=== PATIENT | female | born 1985 | race Caucasian/White ===

== ENCOUNTER 2020-06-20 14:54 | Emergency (ER) | payer OTHER ==
[~2020-06-20] VITALS: Ht 167.6 cm; Wt 65.8 kg
--- NOTE | 2020-06-20 15:36 | PHYS DOC ---
Past History Past Medical History: Asthma, Hypothyroid, UTI, Other Additional Past Medical Histor: Nerves Past Surgical History: No Surgical History Alcohol Use: Occasionally Adult General Chief Complaint Chief Complaint: SORE THROAT HPI HPI Patient is a 34-year-old female presents emergency department today complaining of URI symptoms for the past 3 weeks, patient states that she is a member in [employer], [facility] and started on amoxicillin for her sore throat, also started on Pepcid for epigastric pains. Patient states she takes 20 mg of Pepcid twice a day every day for the past 9 days, and is taking her amoxicillin 3 times a day for the past 9 days. Patient states she is concerned because her lymph nodes in her throat are still swollen, she wishes to have an x-ray of her neck to make sure that nothing is wrong, patient states that she is concerned that the Pepcid has not relieved any of her upper abdominal and epigastric pain. Patient states that she continues to be short of breath when she coughs, patient states that her cough continues to be nonproductive, patient states that she does not have chest pain however she does have chest pressure when she coughs and has upper back pain when she coughs. Patient states she does have a history of asthma and used her MDI inhaler last night, however patient states that she does not feel like she is having an asthma attack today and has not used her MDI inhaler today. Patient states that she was also tested for the Covid virus on 06/04/2020 which was negative. Patient states her normal period was a week ago, patient denies nausea, vomiting, diarrhea, constipation. Patient denies any problems urinating, patient denies STI concerns, patient denies vaginal discharge, patient denies low back pains, skin rashes, headaches, focal weaknesses or sensory changes. Patient denies any increased thirst or increased urination. Patient denies any depressions, anxieties, homicidal or suicidal ideations. Patient denies any visual changes, patient denies fever or chills at home. Review of Systems Review of Systems Constitutional: Denies fever or chills Eyes: Denies change in visual acuity, redness, or eye pain HENT: Complains of nasal congestion and sore throat Respiratory: Complains of nonproductive cough, and intermittent shortness of breath when she coughs hard. Cardiovascular: Patient denies chest palpitations, denies chest pains, however complains of chest pressure when she coughs. GI: Denies abdominal pain, nausea, vomiting, constipation or diarrhea : Denies dysuria or hematuria, vaginal discharge, STI concerns Musculoskeletal: Complains of upper back pressure and pains when she coughs. Integument: Denies rash or skin lesions [] Neurologic: Denies headache, focal weakness or sensory changes [] Endocrine: Denies polyuria or polydipsia Psychiatric: Patient denies homicidal or suicidal ideations, patient denies recent depressions or anxieties. All other systems were reviewed and found to be within normal limits, except as documented in this note. Family History Family History Patient states both her mother and father are well do not have cardiac problems. Current Medications Current Medications Patient states her current medications are 50 mcg of levothyroxine, 20 mg Pepcid twice daily, and amoxicillin 500 mg 3 times daily for which she has 2-1/2 days left. Allergies Allergies Allergies Coded Allergies Type Severity Reaction Last Updated Verified nitrofurantoin Allergy Unknown 06/20/20 Yes Physical Exam Physical Exam Constitutional: Well developed, well nourished, no acute distress, non-toxic appearance. [] HENT: Normocephalic, atraumatic, bilateral external ears normal, oropharynx moist, no oral exudates, nose normal. Oropharynx erythematous, tonsils eryt hematous, without purulent drainage, no postnasal drip, no cobblestoning noted. Eyes: PERRLA, EOMI, conjunctiva normal, no discharge. [] Neck: Normal range of motion, no tenderness, supple, no stridor. No meningismus noted, patient does have submental, and posterior cervical adenopathy. Cardiovascular:Heart rate regular rhythm, no murmur, heart sounds S1-S2 Lungs & Thorax: Bilateral breath sounds clear to all lung solomon to auscultation Abdomen: Bowel sounds normal, soft, no tenderness, no masses, no pulsatile masses. [] Skin: Warm, dry, no erythema, no rash. [] Back: No tenderness, no CVA tenderness. [] Extremities: No tenderness, no cyanosis, no clubbing, ROM intact, no edema. [] Neurologic: Alert and oriented X 3, normal motor function, normal sensory function, no focal deficits noted. [] Psychologic: Affect normal, judgement normal, mood normal. [] Current Patient Data Vital Signs Vital Signs Date Time Temp Pulse Resp B/P (MAP) Pulse Ox O2 Delivery O2 Flow Rate FiO2 06/20/20 15:04 98.0 83 16 131/86 (101) 100 Room Air Lab Results Laboratory Tests Test 06/20/20 15:40 06/20/20 15:50 06/20/20 15:55 06/20/20 16:01 Urine Collection Type Void Urine Color Yellow Urine Clarity Clear Urine pH 5.5 Urine Specific [place] 1.010 Urine Protein Neg Urine Glucose (UA) Neg mg/dL Urine Ketones (Stick) Neg mg/dL Urine Blood Trace Urine Nitrite Neg Urine Bilirubin Neg Urine Urobilinogen Dipstick 0.2 mg/dL Urine Leukocyte Esterase Neg Urine RBC 0 /HPF Urine WBC 0 /HPF Urine Squamous Epithelial Cells Occ /LPF Urine Bacteria 0 /HPF Group A Streptococcus Rapid Negative White Blood Count 7.9 x10^3/uL Red Blood Count 4.28 x10^6/uL Hemoglobin 13.6 g/dL Hematocrit 39.8 % Mean Corpuscular Volume 93 fL Mean Corpuscular Hemoglobin 32 pg Mean Corpuscular Hemoglobin Concent 34 g/dL Red Cell Distribution Width 12.4 % Platelet Count 230 x10^3/uL Neutrophils (%) (Auto) 72 % Lymphocytes (%) (Auto) 20 % Monocytes (%) (Auto) 7 % Eosinophils (%) (Auto) 1 % Basophils (%) (Auto) 1 % Neutrophils # (Auto) 5.7 x10^3uL Lymphocytes # (Auto) 1.6 x10^3/uL Monocytes # (Auto) 0.5 x10^3/uL Eosinophils # (Auto) 0.1 x10^3/uL Basophils # (Auto) 0.1 x10^3/uL Sodium Level 137 mmol/L Potassium Level 3.4 mmol/L Chloride Level 105 mmol/L Carbon Dioxide Level 25 mmol/L Anion Gap 7 Blood Urea Nitrogen 9 mg/dL Creatinine 0.8 mg/dL Estimated GFR (Cockcroft-Gault) 81.2 BUN/Creatinine Ratio 11 Glucose Level 82 mg/dL Lactic Acid Level 0.8 mmol/L Calcium Level 8.8 mg/dL Total Bilirubin 0.4 mg/dL Aspartate Amino Transf (AST/SGOT) 12 U/L Alanine Aminotransferase (ALT/SGPT) 15 U/L Alkaline Phosphatase 45 U/L Troponin I Quantitative < 0.017 ng/mL Total Protein 7.3 g/dL Albumin 3.9 g/dL Albumin/Globulin Ratio 1.1 Lipase 85 U/L Heterophil Agglutinins Negative Bedside Urine HCG, Qualitative hcg negative Current Medications Medications (Trade) Dose Ordered Sig/Abdoul Route PRN Reason Start Time Stop Time Status Last Admin Dose Admin Iohexol (Omnipaque 300 Mg/ml) 75 ml 1X ONCE IV 06/20/20 16:00 06/20/20 16:02 DC 06/20/20 16:36 Info (Do NOT chart on this entry -- for MONITORING) 1 each PRN DAILY PRN MC SEE COMMENTS 06/20/20 16:15 06/20/20 18:25 DC Ibuprofen (Motrin) 600 mg 1X ONCE PO 06/20/20 18:00 06/20/20 18:25 DC 06/20/20 18:00 Dexamethasone Sodium Phosphate (Decadron) 10 mg 1X ONCE PO 06/20/20 18:00 06/20/20 18:25 DC 06/20/20 18:00 Potassium Chloride (Klor-Con) 20 meq 1X ONCE PO 06/20/20 18:00 06/20/20 18:25 DC 06/20/20 18:00 Potassium Chloride (Klor-Con) 10 meq STK-MED ONCE PO 06/20/20 18:14 06/20/20 18:15 DC Ibuprofen (Motrin) 100 mg STK-MED ONCE .ROUTE 06/20/20 18:14 06/20/20 18:25 DC Dexamethasone Sodium Phosphate (Decadron) 10 mg STK-MED ONCE .ROUTE 06/20/20 18:14 06/20/20 18:25 DC EKG EKG []EKG performed at 1553 by house respiratory therapist, EKG shows heart rate is 78 bpm normal sinus rhythm without ectopy, no STEMI, no coronary syndrome, no ischemia noted, ME interval 0.134, QTc interval 0. 474, EKG interpreted by ED attending . Radiology/Procedures Radiology/Procedures STATUS: REG ER ORD. PHYSICIAN: MALIKA ROACH APRN REASON: SORE THROAT R/O DEEP TISSUE INFECTION PROCEDURE: CT SOFT TISSUE NECK W/CONTRAST CT SOFT TISSUE NECK W/CONTRAST History:Reason: SORE THROAT R/O DEEP TISSUE INFECTION / Spl. Instructions: / History: Technique: CT imaging was performed of the neck soft tissues with intravenous contrast. Coronal and sagittal reconstructions were performed. Exposure: One or more of the following individualized dose reduction techniques were utilized for this examination: 1. Automated exposure control 2. Adjustment of the mA and/or kV according to patient size 3. Use of iterative reconstruction technique. Comparison: None Findings: Normal appearance of the bilateral submandibular and parotid glands. Unremarkable thyroid gland. No pathologic lymphadenopathy. Imaged lung apices are unremarkable. Imaged paranasal sinuses and mastoid air cells are clear. Imaged orbits and intracranial contents are unremarkable. Impression: 1. No acute pathology within the neck soft tissues. Electronically signed by: Bin Nur DO (06/20/2020 4:50 PM) [facility] DICTATED AND SIGNED BY: BIN NUR DO DATE: 06/20/20 1650 CC: MALIKA ROACH APRN; PCP,NO; VON LIEBERMAN DO ~MTH0 0 STATUS: REG ER ORD. PHYSICIAN: MALIKA ROACH APRN REASON: CHEST PRESSURE, SHORT OF BREATH PROCEDURE: CHEST PA & LATERAL CHEST PA LATERAL History: Reason: CHEST PRESSURE, SHORT OF BREATH / Spl. Instructions: / History: Comparison: None. Findings: No consolidation or pleural effusion. Normal heart size. No pneumothorax. Impression: 1. No acute cardiopulmonary process. Electronically signed by: Bin Nur DO (06/20/2020 4:45 PM) [email or web address] DICTATED AND SIGNED BY: BIN NUR DO DATE: 06/20/20 1645 CC: MALIKA ROACH APRN; PCP,NO; VON LIEBERMAN DO ~MTH0 0 STATUS: REG ER ORD. PHYSICIAN: MALIKA ROACH APRN REASON: UPPER ABDOMEN PAIN PROCEDURE: CT ABD PELV W/ IV CONTRST ONLY PQRS Compliance Statement: One or more of the following individualized dose reduction techniques were utilized for this examination: 1. Automated exposure control 2. Adjustment of the mA and/or kV according to patient size 3. Use of iterative reconstruction technique CT ABD PELV W/ IV CONTRST ONLY Clinical Indication: Reason: UPPER ABDOMEN PAIN Comparison: None. Technique: Helical CT imaging of the abdomen and pelvis is performed after IV contrast. Oral contrast not administered. Findings: Lung bases are clear. Cardiac size normal. The liver, gallbladder, spleen, pancreas, adrenal glands, abdominal aorta, and kidneys are normal. There is no obvious abnormality of the stomach. There is no dilated small bowel. The appendix is not seen, no secondary signs of appendicitis. There is no colon wall thickening. No abdominal adenopathy or free fluid. Uterus is retroverted. Mild pelvic free fluid. There is a 2.8 cm left ovary functional cyst. The urinary bladder is normal. There is no acute bone abnormality. Left osteitis condensans ilii. IMPRESSION: 1. There is small left ovary functional cyst. There is mild pelvic free fluid. Findings likely physiologic. 2. There is otherwise no acute abdominal or pelvic abnormality. Electronically signed by: Gelacio Dent MD (06/20/2020 5:00 PM) [facility] DICTATED AND SIGNED BY: GELACIO DENT MD DATE: 06/20/20 1700 CC: MALIKA ROACH APRN; PCP,NO; VON LIEBERMAN DO ~MTH0 0 Heart Score Risk Factors: Risk Factors: DM, Current or recent (<one month) smoker, HTN, HLP, family history of CAD, obesity. Risk Scores: Risk Factors: DM, Current or recent (<one month) smoker, HTN, HLP, family history of CAD, obesity. Course & Med Decision Making Course & Med Decision Making Pertinent Labs and Imaging studies reviewed. (See chart for details) 34-year-old female patient comes to the emergency department with URI symptoms vital signs are stable, she was afebrile, she was nontoxic, patient did however have some submental and posterior cervical lymphadenopathy, along with a slightly erythematous oropharynx, patient had been on antibiotics for approximately 9 days along with Pepcid for epigastric upper abdominal pains, and ER exam consisted of strep test and mono test CT abdomen pelvis, lab work, CT soft tissue neck, and chest x-ray. The patient denied neck pain, had no signs of meningismus, her Monospot was negative, she did not have strep throat, her urine was not infected, she did not not have pancreatitis, there was no evidence of deep tissue infection per CT soft tissue neck read by house radiologist, CT of the abdomen pelvis was also negative for acute process read by house radiologist. Chest x-ray did not show any acute pulmonary process, did not show pneumonia. The patient was not . The patient did have nonserious fluid with air bubbles noted on both TMs per examination, TMs were not bulging, TMs were intact. Discussed findings with patient diagnosis of URI, viral pharyngitis, recommended to patient she use children's ibuprofen for throat discomfort, red-colored throat antiseptic spray but she should keep in the refrigerator for throat discomfort, Sudafed for decongestant. Recommended to patient she continue taking all of her antibiotics as directed until complete, patient should follow-up with her [facility] doctor soon. Patient gave verbal understanding of discharge home instructions, return to ER concerns, patient had no further questions or concerns, patient discharged home without incident. This is most likely an acute viral pharyngitis, unlikely candidiasis, diphtheria, epiglottitis, gonorrhea, herpes simplex, mononucleosis, croup, arhy-ptbc-vot-mouth, peritonsillar abscess, rheumatic fever, or physical trauma. Dragon Disclaimer Dragon Disclaimer This electronic medical record was generated, in whole or in part, using a voice recognition dictation system. Departure Departure: Impression: Primary Impression: Viral pharyngitis Additional Impressions: Low serum potassium Otitis media Disposition: DC HOME SELF CARE/HOMELESS Condition: IMPROVED Referrals: PCP,NO (PCP) Patient Instructions: Viral Pharyngitis Additional Instructions: Continue taking your prescribed antibiotics, today we have performed a CAT scan of your neck and abdomen and pelvis, and also performed a chest x-ray as well as blood laboratory evaluations. There was no findings suggestive of an acute infection that will require me to change her antibiotics or admit you to the hospital. You can use children's ibuprofen for throat discomfort, increase your fluids, use an odyu-dpn-yebujoj decongestant such as Sudafed for your nasal and ear congestion. Follow-up with your clinic doctor on the arm of a soon regarding your Pepcid dosing schedule. Return to emergency department for any worsening symptoms or other concerns. Scripts Pseudoephedrine Hcl (PSEUDOEPHEDRINE HCL) 60 Mg Tablet 60 MG PO PRN Q4-6HRS PRN for CONGESTION, #20 TAB 0 Refills Prov: MALIKA ROACH PURCHASING ASSOCIATE 06/20/20 Problem Qualifiers Additional Impressions: Otitis media Otitis media type: other nonsuppurative Chronicity: acute Laterality: bilateral Recurrence: not specified as recurrent Qualified Codes: H65.193 - Other acute nonsuppurative otitis media, bilateral MALIKA ROACH PURCHASING ASSOCIATE Jun 20, 2020 15:36
[2020-06-20] MEDS ORDERED: IOHEXOL 300 MG/ML 75 ML VIAL. IV ONE (16:00)
--- NOTE | 2020-06-20 16:04 | EKG ---
[address] [address] Test Date: 2020-06-20 Test Time: 15:53:10 Pat Name: ALBERT ARORA Department: Room: Gender: F [employer] Builder: FAYE : [id number] Requested By: MALIKA ROACH Order Number: [id number] Reading MD: Erik Hesetr Measurements Intervals Campus Rate: 78 P: 60 WI: 134 QRS: 37 QRSD: 78 T: 5 QT: 412 QTc: 474 Interpretive Statements SINUS RHYTHM Electronically Signed On 06-24-2020 10:57:50 MACHINE [employer]ILLER by Erik Hester
[2020-06-20] MEDS ORDERED: CONTRAST GIVEN. MC PRN (16:15)
[2020-06-20 16:25] LABS: BASO # 0.1 x10^3/uL (0.0-0.2); BASO % 1 % (0-3); EOS # 0.1 x10^3/uL (0.0-0.7); EOS % 1 % (0-3); HEMATOCRIT 39.8 % (36.0-47.0); HEMOGLOBIN 13.6 g/dL (12.0-15.5); LYMPH # 1.6 x10^3/uL (1.0-4.8); LYMPH % 20 % (24-48); MEAN CORPUSCULAR HEMOGLOBIN 32 pg (25-35); MEAN CORPUSCULAR HGB CONC 34 g/dL (31-37); MEAN CORPUSCULAR VOLUME 93 fL (79-100); MONO # 0.5 x10^3/uL (0.0-1.1); MONO % 7 % (0-9); NEUT # 5.7 x10^3uL (1.8-7.7); NEUT % 72 % (31-73); PLATELET COUNT 230 x10^3/uL (140-400); RED BLOOD COUNT 4.28 x10^6/uL (3.50-5.40); RED CELL DISTRIBUTION WIDTH 12.4 % (11.5-14.5); WHITE BLOOD COUNT 7.9 x10^3/uL (4.0-11.0)
[2020-06-20 16:32] LABS: MONONUCLEOSIS PATIENT NEGATIVE (NEGATIVE)
[2020-06-20 16:34] LABS: CALCIUM 8.8 mg/dL (8.5-10.1); CREATININE 0.8 mg/dL (0.6-1.0); GFR 81.2; POTASSIUM 3.4 mmol/L (3.5-5.1)
[2020-06-20 16:40] LABS: ALBUMIN 3.9 g/dL (3.4-5.0); ALBUMIN/GLOBULIN RATIO 1.1 (1.0-1.7); TOTAL BILIRUBIN 0.4 mg/dL (0.2-1.0); TOTAL PROTEIN 7.3 g/dL (6.4-8.2)
[2020-06-20 16:47] LABS: BACTERIA,URINE 0 /HPF (0-FEW); BILIRUBIN,URINE NEG (NEG); CLARITY,URINE CLEAR; COLOR,URINE YELLOW; GLUCOSE,URINE NEG (NEG); NITRITE,URINE NEG (NEG); RBC,URINE 0 /HPF (0-2); SQUAMOUS EPITHELIAL CELL,UR OCC /LPF; UROBILINOGEN,URINE 0.2 mg/dL (0.2 mg/dL); WBC,URINE 0 /HPF (0-4)
--- NOTE | 2020-06-20 16:48 | RAD ---
CHEST PA LATERAL History: Reason: CHEST PRESSURE, SHORT OF BREATH / Spl. Instructions: / History: Comparison: None. Findings: No consolidation or pleural effusion. Normal heart size. No pneumothorax. Impression: 1. No acute cardiopulmonary process. Electronically signed by: Bin Nur DO (06/20/2020 4:45 PM) [facility]
[2020-06-20 16:51] VITALS: BP 142/69
--- NOTE | 2020-06-20 16:53 | RAD ---
CT SOFT TISSUE NECK W/CONTRAST History:Reason: SORE THROAT R/O DEEP TISSUE INFECTION / Spl. Instructions: / History: Technique: CT imaging was performed of the neck soft tissues with intravenous contrast. Coronal and sagittal reconstructions were performed. Exposure: One or more of the following individualized dose reduction techniques were utilized for this examination: 1. Automated exposure control 2. Adjustment of the mA and/or kV according to patient size 3. Use of iterative reconstruction technique. Comparison: None Findings: Normal appearance of the bilateral submandibular and parotid glands. Unremarkable thyroid gland. No pathologic lymphadenopathy. Imaged lung apices are unremarkable. Imaged paranasal sinuses and mastoid air cells are clear. Imaged orbits and intracranial contents are unremarkable. Impression: 1. No acute pathology within the neck soft tissues. Electronically signed by: Bin Nur DO (06/20/2020 4:50 PM) [facility]
--- NOTE | 2020-06-20 17:03 | RAD ---
PQRS Compliance Statement: One or more of the following individualized dose reduction techniques were utilized for this examination: 1. Automated exposure control 2. Adjustment of the mA and/or kV according to patient size 3. Use of iterative reconstruction technique CT ABD PELV W/ IV CONTRST ONLY Clinical Indication: Reason: UPPER ABDOMEN PAIN Comparison: None. Technique: Helical CT imaging of the abdomen and pelvis is performed after IV contrast. Oral contrast not administered. Findings: Lung bases are clear. Cardiac size normal. The liver, gallbladder, spleen, pancreas, adrenal glands, abdominal aorta, and kidneys are normal. There is no obvious abnormality of the stomach. There is no dilated small bowel. The appendix is not seen, no secondary signs of appendicitis. There is no colon wall thickening. No abdominal adenopathy or free fluid. Uterus is retroverted. Mild pelvic free fluid. There is a 2.8 cm left ovary functional cyst. The urinary bladder is normal. There is no acute bone abnormality. Left osteitis condensans ilii. IMPRESSION: 1. There is small left ovary functional cyst. There is mild pelvic free fluid. Findings likely physiologic. 2. There is otherwise no acute abdominal or pelvic abnormality. Electronically signed by: Gelacio Dent MD (06/20/2020 5:00 PM) [facility]
[2020-06-20] MEDS ORDERED: DEXAMETHASONE SOD PHOS 10 MG/ML VIAL. PO ONE (18:00)
[2020-06-20] MEDS ORDERED: IBUPROFEN 100 MG/5 ML ORAL.SUSP. PO ONE (18:00)
[2020-06-20] MEDS ORDERED: POTASSIUM CHLORIDE 20 MEQ TABLET.ER. PO ONE (18:00)
[2020-06-20] MEDS ORDERED: PSEU60TA PO (18:12)
[2020-06-20] MEDS ORDERED: IBUPROFEN 100 MG/5 ML ORAL.SUSP. ONE (18:14)
[2020-06-20] MEDS ORDERED: DEXAMETHASONE SOD PHOS 10 MG/ML VIAL. ONE (18:14)
[2020-06-20] MEDS ORDERED: POTASSIUM CHLORIDE 10 MEQ TABLET.ER. PO ONE (18:14)
== END 2020-06-20 18:22 | disposition home or self-care (01) ==
LOC: ER 14:54
DX: J02.8 Acute pharyngitis due to other specified organisms (principal); B97.89 Other viral agents as the cause of diseases classified elsewhere; H65.193 Other acute nonsuppurative otitis media, bilateral; R79.89 Other specified abnormal findings of blood chemistry; R07.89 Other chest pain; J45.909 Unspecified asthma, uncomplicated; E03.9 Hypothyroidism, unspecified; Z87.440 Personal history of urinary (tract) infections; Z88.8 Allergy status to other drugs, medicaments and biological substances
CPT/HCPCS: 36415; 70491; 71046; 74177; 80053; 81001; 81025; 83605; 83690; 84484; 85025; 86308; 87070; 87880; 93005; 99285; J1100; Q9967

== ENCOUNTER → 2020-09-19 | Outpatient (CLI) | payer OTHER ==
[~2020-09-19] MED LIST: PSEU60TA PO
--- NOTE | 2020-09-19 17:16 | RAD ---
EXAMINATION: RIGHT LOWER EXTREMITY - UNILATERAL VENOUS DOPPLER. Technique: Ultrasound evaluation of the right lower extremity was performed from the groin to the upp er calf with hernandez scale, spectral and color doppler evaluation. Indication: Leg swelling, right calf pain Comparison: None Findings: There is normal venous flow and compressibility of right common femoral vein, femoral vein, popliteal vein, and visualized proximal calf veins. Impression: No evidence for deep vein thrombosis of right lower extremity from the level of the calf veins to the groins. Electronically signed by: Enoch Bullock MD (09/19/2020 5:14 PM) [id number]
== END ==
LOC: US 16:39
PROVIDERS: ATTEND Advanced Practice Midwife
DX: M79.661 Pain in right lower leg (principal); R22.41 Localized swelling, mass and lump, right lower limb
CPT/HCPCS: 93971

== ENCOUNTER → 2020-09-26 | Outpatient (CLI) | payer OTHER ==
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
== END ==
LOC: PMG 13:32
PROVIDERS: ATTEND Nurse Practitioner Family
DX: S63.095A Other dislocation of left wrist and hand, initial encounter (principal); X58.XXXA Exposure to other specified factors, initial encounter; Y93.89 Activity, other specified; Y92.89 Other specified places as the place of occurrence of the external cause; Y99.8 Other external cause status
CPT/HCPCS: 73110